=== PATIENT | male | born 1975 | race Caucasian/White ===

== ENCOUNTER → 2022-07-01 10:35 | Outpatient (BNVA) | payer SELFPAY | PROVIDERS: Visit Provider Registered Nurse Neonatal Intensive Care | DX: S69.92XA Unspecified injury of left wrist, hand and finger(s), initial encounter (principal); X58.XXXA Exposure to other specified factors, initial encounter | CPT/HCPCS: 73130 ==

== ENCOUNTER 2024-07-28 09:37 | Outpatient (CLI) | payer OTHER, SELFPAY ==
--- NOTE | 2024-07-28 09:44 | XR_ITS ---
WS: [id number] Left shoulder, 3 views, 07/28/2024 Clinical Data: M25.519 - Pain in unspecified shoulder Comparison: None. Findings: No fractures or dislocations are seen. The AC joint shows osteoarthritis with narrowing. The adjacent left clavicle, left scapula and ribs are normal. The soft tissues are unremarkable. XR/XR shoulder LT min 2V* [id number] Impression: 1. Osteoarthritis of the left AC joint. 2. Negative left glenohumeral joint.
--- NOTE | 2024-07-28 09:44 | XR_ITS ---
WS: [id number] Left knee, 3 views, 07/28/2024 Clinical Data: M25.569 - Pain in unspecified knee Comparison: None. Findings: No new fractures or dislocations are seen. There is an ACL repair with orthopedic support screws in the distal femur and proximal tibia. There is narrowing of the medial joint compartment. There are abundant calcifications adjacent to the lateral tibial plateau and lateral joint compartment. There are calcifications adjacent to the medial tibial plateau. The patella is intact and without significant arthritic change.. The soft tissues are unremarkable. There is an old proximal left fibular fracture. XR/XR knee LT 3V* [id number] Impression: 1. ACL repair. 2. Medial joint compartment narrowing. 3. Periarticular calcifications of the medial and lateral joint space, mostly o n the lateral side, from an old injury.
--- NOTE | 2024-07-28 09:44 | XR_ITS ---
WS: [id number] Right shoulder, 3 views, 07/28/2024 Clinical Data: M25.519 - Pain in unspecified shoulder Comparison: None. Findings: No fractures or dislocations are seen. The AC joint is normal. The adjacent right clavicle, right scapula and ribs are normal. The soft tissues are unremarkable. XR/XR shoulder RT min 2V* [id number] Impression: Negative right shoulder.
== END 2024-07-28 09:38 | disposition home or self-care (01) ==
LOC: LAB 09:40 → RAD 09:44
PROVIDERS: PCP Nurse Practitioner Family; Visit Provider Nurse Practitioner Family
DX: M17.11 Unilateral primary osteoarthritis, right knee (principal); M19.012 Primary osteoarthritis, left shoulder; Z98.890 Other specified postprocedural states; M25.862 Other specified joint disorders, left knee; Z87.81 Personal history of (healed) traumatic fracture
CPT/HCPCS: 73030; 73562

== ENCOUNTER → 2024-08-16 08:59 | Outpatient (BNVA) | payer OTHER, SELFPAY | PROVIDERS: PCP Nurse Practitioner Family; Visit Provider Specialist | DX: M17.32 Unilateral post-traumatic osteoarthritis, left knee (principal); M17.12 Unilateral primary osteoarthritis, left knee; G89.29 Other chronic pain | CPT/HCPCS: 73560; 73565 ==

== ENCOUNTER 2024-08-16 11:20 | Outpatient (CLI) | payer OTHER, SELFPAY | END 2024-08-16 11:21 | disposition home or self-care (01) | LOC: SPT 11:21 | PROVIDERS: PCP Nurse Practitioner Family; Visit Provider Specialist | DX: Z46.89 Encounter for fitting and adjustment of other specified devices (principal); M25.562 Pain in left knee | CPT/HCPCS: L1851 ==

== ENCOUNTER → 2024-08-23 13:25 | Outpatient (BNVA) | payer OTHER, SELFPAY | PROVIDERS: PCP Nurse Practitioner Family; Visit Provider Specialist | DX: M19.012 Primary osteoarthritis, left shoulder (principal) | CPT/HCPCS: 73030 ==

== ENCOUNTER 2024-10-01 05:00 | Outpatient (RCR) | payer OTHER, SELFPAY | END 2024-10-31 23:59 | disposition home or self-care (01) | LOC: SPT 05:00 | PROVIDERS: Visit Provider Specialist | DX: M25.511 Pain in right shoulder (principal); M25.512 Pain in left shoulder | CPT/HCPCS: 97110; 97162 ==

== ENCOUNTER → 2024-10-13 08:28 | Outpatient (BNVA) | payer OTHER, SELFPAY | PROVIDERS: PCP Nurse Practitioner Family; Visit Provider Specialist | DX: M25.512 Pain in left shoulder (principal); M25.511 Pain in right shoulder; G89.29 Other chronic pain | CPT/HCPCS: 73030 ==

== ENCOUNTER 2024-10-27 07:07 | Outpatient (CLI) | payer OTHER, SELFPAY ==
--- NOTE | 2024-10-27 07:15 | MR_ITS ---
WS: [id number] MRI LEFT SHOULDER HISTORY: left shoulder pain COMPARISON: Radiographs 10/13/2024 TECHNIQUE: Multiplanar sequences of the shoulder joint are submitted. Severe AC joint arthritis. Narrowing of the AC joint with circumferential osteophytes. Osteophytes encroach upon and deform the myotendinous portion of the supraspinatus. Downsloping of the acromion with moderate subacromial impingement. Small amount of fluid in the subdeltoid bursa. No os acromion. Bi ceps tendon is present in the bicipital groove. There is marked thickening of the biceps tendon and loss of the normal morphology and signal just proximal to the bicipital groove. No significant rotator cuff muscle atrophy or edema. There is encroachment upon the distal supraspinatus tendon by the acromion. There is tendinopathy but no full-thickness tear or retraction. Tendinopathy in the distal subscapularis tendon. Infraspinatus tendon is intact. Slightly lobular appearance of the anterior labrum and intrasubstance degeneration. No tear identified. Additional intrasubstance degeneration in the superior and inferior labrum. No labral tear. MR/MR shoulder LT wo con* [id number] IMPRESSION: 1. Severe AC joint arthritis with osteophyte encroachment upon the myotendinou s portion of the supraspinatus. 2. Moderate subacromial impingement. 3. Abnormal signal in the biceps tendon through the rotator cuff interval. See n best on the sagittal proton density fat-sat sequence is a tear with additiona l tendinopathy. Loss of the normal morphology of the tendon. 4. Marked thickening and loss of the normal signal in the distal subscapularis tendon. 5. Intrasubstance degeneration in the labrum but no tear.
== END 2024-10-27 07:08 | disposition home or self-care (01) ==
LOC: RAD 07:07
PROVIDERS: Visit Provider Specialist
DX: M19.012 Primary osteoarthritis, left shoulder (principal); G89.29 Other chronic pain
CPT/HCPCS: 73221

== ENCOUNTER 2024-11-01 05:00 | Outpatient (RCR) | payer SELFPAY | END 2024-11-15 14:59 | disposition home or self-care (01) | LOC: SPT 05:00 | PROVIDERS: Visit Provider Specialist | DX: M25.512 Pain in left shoulder (principal); M25.511 Pain in right shoulder | CPT/HCPCS: 97110 ==

== ENCOUNTER → 2024-11-15 12:27 | Outpatient (BNVA) | payer SELFPAY | PROVIDERS: Visit Provider Specialist | DX: M25.812 Other specified joint disorders, left shoulder (principal); M19.012 Primary osteoarthritis, left shoulder; M67.912 Unspecified disorder of synovium and tendon, left shoulder; Z01.818 Encounter for other preprocedural examination; S46.219D Strain of muscle, fascia and tendon of other parts of biceps, unspecified arm, subsequent encounter; X58.XXXD Exposure to other specified factors, subsequent encounter | CPT/HCPCS: 36415; 80053; 81001; 85025 ==

== ENCOUNTER 2024-12-14 13:14 | Day surgery (SDC) | payer SELFPAY ==
[2024-12-14] VITALS (12 sets, daily range): BP systolic 83–125; BP diastolic 37–97; PULSE 53–68; RESP 16–17; TEMP 36.2–36.4; O2SAT 94–100; BMI 26.6
[2024-12-14] MEDS: acetaminophen 1,000 MG/100 ML PIGGYBACK 400 MG IV (13:59)
--- NOTE | 2024-12-14 14:17 | SUR.PREOP ---
1410-patient was given a interscalene block in OPS using 30ml ropivicaine. Patient tolerated well.
--- NOTE | 2024-12-14 16:02 | W.PM.OPSUD ---
Surgery/Procedure H&P Update DATE OF PROCEDURE: December 14, 2024 DATE H&P PERFORMED: 11/15/24 H&P UPDATE INFORMATION: I have reviewed H&P completed within last 30 days, I have examined patient prior to procedure, No changes to prior documentation, H&P is in [facility] EMR on date indicated and Risks and benefits of the procedure reviewed PLANNED PROCEDURE: Operation Date: 12/14/24 14:50 Proposed Procedures p Acromioplasty Shoulder Acromioplasty(Left) - Vivian Willis MD s Distal Clavicle Resection(Left) - Vivian Willis MD s Shoulder Tenodesis Biceps Tenodesis at Shoulder(Left) - Vivian Willis MD Related Problem List Diagnoses 1. Impingement of left shoulder: 2. Tendinopathy of left rotator cuff:
[2024-12-14] MEDS: ceFAZolin 2,000 mg SDV 2000 MG IVP (16:09)
[2024-12-14] MEDS: ceFAZolin 1,000 mg SDV 1000 MG IRRIGATION (16:49)
--- NOTE | 2024-12-14 17:32 | P.OP_ITS ---
Operative Report Date of procedure: December 14, 2024 Pre-op diagnosis: Left shoulder impingement, acromioclavicular joint osteoarthritis with bursitis and tendinopathy with partial biceps tear. Post-op diagnosis: Left shoulder impingement, significant acromioclavicular joint osteoarthritis with underlying bursitis and tendinopathy and no evidence of rotator cuff tear. Biceps tendon tear not palpable Post-op findings: As noted under diagnosis Procedure done: Left shoulder acromioplasty with distal clavicle resection and bursal de bridement Implants: None Specimens removed/disposition: Distal clavicle and acromioplasty fragments disposed of Pathology: None Surgeon: Vivian Willis MD Jewelry Drill Operator: Kathryn Hartmann, nurse practitioner who services were required for retraction, exposure, closure, and completion of the surgical procedure Anesthesia: General (Intubated, ASA 2) and Nerve Block (Preoperative interscalene block) Estimated blood loss (mL): 10 IV fluids (mL): 600 Urine output (mL): 0 (No Blake) Complications: None Findings: As noted in postoperative findings Condition: stable Disposition: PACU (Then discharged to home after recovery) Brief History: This 49-year-old gentleman presented to the office initially with complaints of left shoulder pain. Examination was consistent with impingement both from the acromion and acromioclavicular joint. Imaging studies demonstrated significant degenerative osteoarthritis of the acromioclavicular joint as well. There was a possible biceps tendon tear and tendinopathy of the rotator cuff. After discussion, the patient wished to proceed with surgical intervention. Risks and complications of the surgical procedure were discussed with him. Plans were then made for acromioplasty with distal clavicle resection, evaluation of the rotator cuff and biceps tendons. Consents were signed and questions were answered while in the office. Procedure: The patient was brought to the operating theater and underwent general intubated anesthesia, ASA 2, with preoperative supplemental interscalene block, which was well-tolerated. The patient was placed in a beachchair position and subsequently the left upper extremity was prepped and draped in the usual fashion utilizing DuraPrep. The arm was draped free. A surgical pause was performed prior to commencement of the surgical procedure. At the time of the surgical pause, we confirmed the site and side of surgery as well as administration of appropriate preoperative antibiotics, Ancef 2 g. MRI was also reviewed at that time. Following the surgical pause, an incision was made at approximately the level of the acromioclavicular joint extending across the anterolateral corner of the acromion and distally as necessary. Care was taken to avoid injury to the axillary nerve by limiting the distal extent of the incision. Dissection continued through skin and soft tissues using a scalpel. Hemostasis was obtained using electrocautery. Soft tissues were elevated off the acromion and the acromioclavicular joint. The acromioclavicular joint was exposed as well as the anterior lateral border of the acromion. A saw was then used to resect the distal clavicle without difficulty. The undersurface of the clavicle was palpated and was slightly further debrided. A power rasp was used to further smooth the area. When this was felt to be adequately resected, the wound was irrigated. An acromioplasty was then accomplished using a combination of a saw and a power rasp. With this, we were able to remove compression caused by the acromion. Impingement was significantly improved following acromioplasty. The rotator cuff was then evaluated to look for tears. Significant bursectomy was accomplished as this was quite thickened and erythematous. Following resection of the bursa, the rotator cuff was visually inspected as well as palpated. There was no evidence of rotator cuff tear. There was no evidence of biceps pathology during this evaluation. The wound once again was irrigated and further rotator cuff was evaluated. Closure was accomplished with 0 Vicryl in the capsular tissues overlying the acromioclavicular joint area as well as over the acromion and down into the deltoid muscle. 3-0 Monocryl was used to close the subcutaneous tissues followed by 4-0 Monocryl subcuticular closure. This was followed by Dermabond, Steri- Strips, and OpSite. An ABD was placed in the axilla. The patient was placed in a sling and was returned to the recovery room in satisfactory condition. The patient will be discharged to home to follow-up in office as scheduled. There were no complications and no specimens. Related Problem List Diagnoses 1. Impingement of left shoulder: 2. Osteoarthritis of left acromioclavicular joint: 3. Tendinopathy of left rotator cuff:
== END 2024-12-14 18:50 | disposition home or self-care (01) ==
PROVIDERS: PCP Nurse Practitioner Family; Visit Provider Specialist
PROC: (CPT 23130; principal; 2024-12-14 14:40)
PROC: (CPT 23120; 2024-12-14 14:40)
DX: M75.42 Impingement syndrome of left shoulder (principal); M19.012 Primary osteoarthritis, left shoulder; M71.9 Bursopathy, unspecified; S46.212A Strain of muscle, fascia and tendon of other parts of biceps, left arm, initial encounter; X58.XXXA Exposure to other specified factors, initial encounter; F17.200 Nicotine dependence, unspecified, uncomplicated
CPT/HCPCS: 23130; 23120; J0131; J0690; J1100; J2250; J2405; J2704; J2795; J3010; J3490; J7030; J9999